=== PATIENT | female | born 1960 | race African-American/Black ===

== ENCOUNTER → 2020-12-22 14:56 | Outpatient (CLI) | payer MEDICARE, OTHER ==
[2020-12-22 15:29] LABS: BASOPHILS 0.6 % (0-2); EOSINOPHILS 1.7 % (0-7); IMMATURE GRANULOCYTES 0.2 % (0-5); LYMPHOCYTE ABS# 2.15 10x3/uL (1.18-3.74); LYMPHOCYTES 33.4 % (15-50); MCH 26.7 pg (26.0-34.0); MCHC 31.3 g/dL (31.0-37.0); MCV 85.6 fL (80.0-100.0); MEAN PLATELET VOLUME 9.1 fL (7.4-10.4); MONOCYTES 8.7 % (2-11); NEUTROPHIL ABS# 3.56 10x3/uL (1.56-6.13); NEUTROPHILS 55.4 % (40-80); PLATELET COUNT 341 10x3/uL (130-400); RBC 3.74 10x6/uL (4.00-5.40); RDW 15.7 % (11.5-14.5); WBC 6.4 10x3/uL (4.8-10.8)
[2020-12-22 15:47] LABS: ALBUMIN 3.1 g/dL (3.4-5.0); ANION GAP 8.2 mmol/L (8-16); BILIRUBIN - TOTAL 0.1 mg/dL (0.2-1.3); CALCIUM 7.8 mg/dL (8.5-10.1); CARBON DIOXIDE 30.3 mmol/L (21.0-32.0); PHENOBARBITAL 17.2 ug/mL (15.0-40.0); POTASSIUM - SERUM 4.5 mmol/L (3.5-5.1)
== END | disposition home or self-care (01) ==
LOC: D.LAB 14:56
PROVIDERS: ATTEND Psychiatry & Neurology Neurology
DX: R56.9 Unspecified convulsions (principal)